=== PATIENT | female | born 1980 | race Caucasian/White ===

== ENCOUNTER → 2016-09-02 | Outpatient (CLI) | payer OTHER ==
[~2016-09-02] MED LIST: AFRIN NASAL SPR15 ML INH; ALDACTONE PO; ALDACTONE25 MG PO; ANTIVERT PO; BACTRIM DS TABL1 TAB PO; BENTYL10 M1; BENZONATATE PO; BROMFED DM PO; CELEXA PO; CLARITIN D; COUGH SYRU100 MG/5 M PO; DEXTROAMPHETAMI10 MG PO; E-MYCIN250 MG PO; ENTEX PSE1 CAP.SR . PO; FLEXERIL10 MG PO; FLONASE 0.05% N16 G1 NS; HYCODAN SYRUP PO; MEDROL DOSEPAK4 MG PO; MORGIDOX100 MG; NASONEX17 GM; NO MEDICATIONS; PREDNISONE PO; PRILOSEC PO; SUDAFED PO; SYNTHROID0.15 MG; VIBRAMYCIN100 M1 PO; VITAMIN D400 UNI2; WELLBUTRIN SR150 MG PO; ZITHROMAX PO; ZYRTEC-D TABLE1 EACH PO; [UNRECOGNIZED DRUG - OTHER]
--- NOTE | ~2016-09-02 | CR21 ---
[facility]. [facility] A Service of [facility] & [facility] RADIOLOGY TEXT RESULTS PATIENT: MAURIZIO NGO LOCATION: [facility] : 76 UNIT #: [id number] AGE: [address]: Dinh Cerrato MD SEX: F ORDER DR: [id number] [address] [id number] O MR#: [id number] Acc #: [id number] NAME: MAURIZIO NGO : 1980 SEX: F STUDY DATE/TIME: 09/02/2016 13:50 UNIT: [facility] ROOM: STUDY DESCRIPTION: CR Ankle Min 3 Views Rt Attending Physician: Dinh Cerrato M.D. Referring Physician: Dinh Cerrato M.D. Ordering Physician: Dinh Cerrato M.D. Primary Care Physician: Dinh Cerrato M.D. MEDICAL IMAGING REPORT This report is preliminary unless electronic signature is present. EXAM Right ankle 09/02/2016 HISTORY 35-year-old woman with pain, swelling right ankle, previous sprain. Patient fell off porch April 2016. COMPARISON STUDIES 04/26/2016 FINDINGS Three views of the right ankle demonstrate intact cortex with no identified fracture. Ankle mortise is preserved. There is mild generalized soft tissue swelling. IMPRESSION Soft tissue swelling only. Negative for fracture. Dictated by... Enrico Bee M.D. THIS IS AN ELECTRONICALLY VERIFIED REPORT Enrico Bee M.D. at 09/03/2016 8:06 AM Gabriela TD: 09/02/2016 16:28 JOB #: [id number] MEDICAL IMAGING REPORT Page 1 of 1
== END | disposition home or self-care (01) ==
LOC: SRAD 13:37
DX: M25.471 Effusion, right ankle (principal); M25.571 Pain in right ankle and joints of right foot; M79.89 Other specified soft tissue disorders
CPT/HCPCS: 73610